=== PATIENT | female | born 1980 | race Two or more races ===

== ENCOUNTER 2016-11-09 21:34 | Emergency (ER) | payer MEDICAID, OTHER ==
[~2016-11-09] VITALS: Ht 167.6 cm; Wt 136.0 kg
[2016-11-09] MEDS ORDERED: ATEN100T PO (21:43)
[2016-11-09 23:00] LABS: BASOPHILS % 0.4 % (0.0-2.0); EOSINOPHILS % 2.4 % (0.0-5.0); HEMATOCRIT. 29.7 % (36.0-48.0); LYMPHOCYTES % 17.1 % (20.0-50.0); MEAN CORPUSCULAR HEMOGLOBIN 18.9 pg (28.0-32.0); MEAN CORPUSCULAR VOLUME 62.3 fL (81.0-99.0); MONOCYTES % 6.2 % (2.0-8.0); NEUTROPHILS % 73.9 % (40.0-76.0); PLATELET 242 x1000/uL (130-400); RED BLOOD CELL COUNT 4.77 mill/uL (4.2-5.4); RED CELL DISTRIBUTION WIDTH 19.5 % (11.6-14.6)
[2016-11-09 23:18] LABS: PLATELET ESTIMATE NORMAL
[2016-11-10 01:50] VITALS: BP 144/78
== END 2016-11-10 02:35 | disposition home or self-care (01) ==
LOC: ER 21:47
DX: R05 Cough (principal); R06.02 Shortness of breath; F41.9 Anxiety disorder, unspecified; I10 Essential (primary) hypertension; F17.210 Nicotine dependence, cigarettes, uncomplicated
CPT/HCPCS: 36415; 71010; 85025; 99285; Z7610